=== PATIENT | female | born 1990 | race African-American/Black ===

== ENCOUNTER 2021-09-04 10:17 | Inpatient (IN) | payer MEDICAID ==
[~2021-09-04] VITALS: Ht 165.1 cm; Wt 58.5 kg
[~2021-09-04 10:17] MED LIST: METHYLERGONOVINE MALEATE 0.2 MG/ML ONE
[2021-09-04 12:56] LABS: CLARITY URINE CLEAR (CLEAR); COLOR URINE YELLOW (YELLOW); KETONES URINE 1+ (NEGATIVE); LEUKOCYTE ESTERASE URINE NEGATIVE (NEGATIVE); NITRITE URINE NEGATIVE (NEGATIVE); OCCULT BLOOD URINE NEGATIVE (NEGATIVE); PH URINE 7.5 (4.5-8.0); PROTEIN URINE NEGATIVE (NEGATIVE); SPECIFIC GRAVITY URINE 1.013 (1.005-1.030)
[2021-09-04] MEDS ORDERED: PENICILLIN G POTASSIUM 5 MMU in DEXT 5% WATER 100 ML IV NR (13:00)
[2021-09-04] MEDS ORDERED: RHO(D) IMMUNE GLOBULIN 300 MCG/SYR IM ONE ×2 (13:00)
[2021-09-04] MEDS ORDERED: DEXT 5%/LACTATED RINGERS 1,000 ML IV SCH (13:00)
[2021-09-04] MEDS ORDERED: MAGNESIUM 4 G PREMIX 100 ML IV SCH (13:40)
[2021-09-04 13:45] LABS: BASOPHILS % 0.4 % (0.0-2.0); EOSINOPHILS % 0.5 % (0.0-5.0); HEMATOCRIT. 34.9 % (36.0-48.0); HEMOGLOBIN. 12.1 g/dL (12.0-16.0); LYMPHOCYTES % 15.4 % (20.0-50.0); MEAN CORPUSCULAR HEMOGLOBIN 30.8 pg (28.0-32.0); MEAN CORPUSCULAR VOLUME 88.8 fL (81.0-99.0); MEAN PLATELET VOLUME 8.3 fl (7.4-10.4); MONOCYTES % 4.3 % (2.0-8.0); NEUTROPHILS % 79.4 % (40.0-76.0); PLATELET 206 x1000/uL (130-400); RED BLOOD CELL COUNT 3.93 mill/uL (4.2-5.4); RED CELL DISTRIBUTION WIDTH 12.3 % (11.6-14.6)
[2021-09-04] MEDS ORDERED: MAGNESIUM 20 G PREMIX (L & D) 500 ML IV SCH (13:45)
[2021-09-04] MEDS ORDERED: BETAMETHASONE ACET/BETAMET 30 MG/5 ML VIAL IM SCH (13:45)
[2021-09-04 13:53] LABS: CHLORIDE 109 mEq/L (98-107)
[2021-09-04 13:57] LABS: *AMPHETAMINES SCREEN URINE NEGATIVE (NEGATIVE); *BARBITURATES SCREEN URINE NEGATIVE (NEGATIVE); *BENZODIAZEPINES SCREEN URINE NEGATIVE (NEGATIVE); *COCAINE SCREEN URINE NEGATIVE (NEGATIVE); METHADONE URINE SCREEN NEGATIVE (NEGATIVE); OPIATES URINE SCREEN NEGATIVE (NEGATIVE)
[2021-09-04 13:57] LABS: INR 0.9; PARTIAL THROMBOPLASTIN TIME 29.2 sec (23.4-31.0); PROTHROMBIN TIME 10.2 sec (9.6-11.0)
[2021-09-04 13:58] LABS: PHENCYCLIDINE URINE SCREEN NEGATIVE (NEGATIVE)
[2021-09-04] MEDS ORDERED: LIDOCAINE HCL 1% 10 MG/ML 10ML VIAL ONE (13:58)
[2021-09-04] MEDS ORDERED: PROPOFOL 200MG/20ML VIAL IV ONE (13:58)
[2021-09-04] MEDS ORDERED: SUCCINYLCHOLINE CHLORIDE 200MG/10ML IV ONE (13:58)
[2021-09-04 14:01] LABS: CANNABINOID URINE SCREEN PRESUMTIVE POSITIVE (NEGATIVE)
[2021-09-04] MEDS ORDERED: CEFAZOLIN SODIUM 1000MG/VIAL ONE (14:01)
[2021-09-04] MEDS ORDERED: OXYTOCIN 10 UNITS/ML 1ML ONE ×2 (14:01→14:33)
[2021-09-04] MEDS ORDERED: PHENYLEPHRINE HCL 10 MG/ML 1ML (IV VIAL) IV ONE (14:04)
[2021-09-04] MEDS ORDERED: FENTANYL CITRATE/PF 50MCG/ML 2ML VIAL ONE ×2 (14:21→14:50)
[2021-09-04] MEDS ORDERED: ONDANSETRON HCL 4MG/2ML INJ ONE (14:40)
[2021-09-04] MEDS ORDERED: LANOLIN OINT 7GM TUBE TOP PRN (14:45)
[2021-09-04] MEDS ORDERED: ONDANSETRON HCL 4MG/2ML INJ IV PRN ×2 (14:45→15:15)
[2021-09-04] MEDS ORDERED: BISACODYL 10MG SUPP PR PRN (14:45)
[2021-09-04] MEDS ORDERED: RHO(D) IMMUNE GLOBULIN 300 MCG/SYR IM PRN (14:45)
[2021-09-04] MEDS ORDERED: KETOROLAC 30MG/ML VIAL IV PRN (14:45)
[2021-09-04] MEDS ORDERED: IBUPROFEN 400MG TABLET PO PRN (14:45)
[2021-09-04] MEDS ORDERED: HYDROCODONE/ACETAMINOPHEN 5/325MG TABLET PO PRN (14:45)
[2021-09-04] MEDS ORDERED: DIPHENHYDRAMINE 25MG CAPSULE PO PRN (14:45)
[2021-09-04] MEDS ORDERED: KETOROLAC 60MG/2ML VIAL IM ONE (14:47)
[2021-09-04 15:19] LABS: HEPATITIS B SURFACE ANTIGEN NEGATIVE
[2021-09-04] MEDS: HYDROMORPHONE HCL/PF 2MG/ML CPJ IV PRN ×3 (15:37→16:17)
[2021-09-04] MEDS ORDERED: PENICILLIN G POTASSIUM 2.5 MMU in DEXTROSE 5% WATER 50 ML IV SCH (16:00)
[2021-09-04 17:45] VITALS: BP 101/51
[2021-09-04] MEDS ORDERED: NALOXONE HCL 0.4MG/ML VIAL IV PRN (17:45)
[2021-09-04] MEDS: DEXT 5%/LR + PITOCIN 20UNITS/L 1,000 ML IV SCH (17:47)
[2021-09-04 20:00] VITALS: BP 98/55
[2021-09-04] MEDS: DOCUSATE SODIUM 100MG CAPSULE PO SCH (21:58)
[2021-09-04] MEDS: SIMETHICONE 80MG TABLET CHEW PO SCH (21:59)
[2021-09-05] VITALS: BP 105/53
[2021-09-05] MEDS: DEXT 5%/LR + PITOCIN 20UNITS/L 1,000 ML IV SCH (01:27)
[2021-09-05 04:00] VITALS: BP 99/54
[2021-09-05] MEDS: IBUPROFEN 800MG TABLET PO PRN ×3 (05:15→21:37)
[2021-09-05 07:15] LABS: HEMATOCRIT. 29.2 % (36.0-48.0); HEMOGLOBIN. 10.3 g/dL (12.0-16.0); MEAN CORPUSCULAR HEMOGLOBIN 31.4 pg (28.0-32.0); MEAN CORPUSCULAR VOLUME 89.2 fL (81.0-99.0); MEAN PLATELET VOLUME 8.3 fl (7.4-10.4); PLATELET 186 x1000/uL (130-400); RED BLOOD CELL COUNT 3.28 mill/uL (4.2-5.4); RED CELL DISTRIBUTION WIDTH 12.1 % (11.6-14.6)
[2021-09-05] MEDS: SIMETHICONE 80MG TABLET CHEW PO SCH ×4 (09:20→20:40)
[2021-09-05] MEDS: PRENATAL VIT/FE FUMARATE/FA TABLET PO SCH (09:21)
[2021-09-05] MEDS: FERROUS SULFATE 325MG TABLET PO SCH ×2 (09:21→18:14)
[2021-09-05 10:00] VITALS: BP 110/60
[2021-09-05 13:23] LABS: PLATELET ESTIMATE NORMAL
[2021-09-05 14:00] VITALS: BP 116/64
[2021-09-05 20:00] VITALS: BP 117/51
[2021-09-05] MEDS: DOCUSATE SODIUM 100MG CAPSULE PO SCH (20:40)
[2021-09-06] VITALS: BP 115/52
[2021-09-06 04:00] VITALS: BP 105/61
[2021-09-06 08:15] VITALS: BP 98/53
[2021-09-06] MEDS: FERROUS SULFATE 325MG TABLET PO SCH (08:40)
[2021-09-06] MEDS: SIMETHICONE 80MG TABLET CHEW PO SCH ×2 (08:40→21:13)
[2021-09-06] MEDS: PRENATAL VIT/FE FUMARATE/FA TABLET PO SCH (08:40)
[2021-09-06] MEDS: IBUPROFEN 800MG TABLET PO PRN ×2 (08:44→21:14)
[2021-09-06 16:50] VITALS: BP 110/69
[2021-09-06 20:00] VITALS: BP 98/61
[2021-09-06] MEDS: DOCUSATE SODIUM 100MG CAPSULE PO SCH (21:13)
[2021-09-07 00:17] LABS: BASOPHILS % 0.2 % (0.0-2.0); EOSINOPHILS % 0.4 % (0.0-5.0); HEMATOCRIT. 30.4 % (36.0-48.0); HEMOGLOBIN. 10.5 g/dL (12.0-16.0); LYMPHOCYTES % 19.6 % (20.0-50.0); MEAN CORPUSCULAR VOLUME 89.7 fL (81.0-99.0); MEAN PLATELET VOLUME 8.1 fl (7.4-10.4); MONOCYTES % 4.8 % (2.0-8.0); PLATELET 191 x1000/uL (130-400); RED BLOOD CELL COUNT 3.39 mill/uL (4.2-5.4); RED CELL DISTRIBUTION WIDTH 12.6 % (11.6-14.6)
[2021-09-07 04:00] VITALS: BP 108/58
[2021-09-07] MEDS ORDERED: MULT1TAB85 MT (07:49)
[2021-09-07] MEDS ORDERED: IBUP-2030 PO (07:49)
[2021-09-07] MEDS ORDERED: FERR-63 PO (07:49)
[2021-09-07] MEDS: FERROUS SULFATE 325MG TABLET PO SCH (07:58)
[2021-09-07] MEDS: SIMETHICONE 80MG TABLET CHEW PO SCH (07:58)
[2021-09-07] MEDS: PRENATAL VIT/FE FUMARATE/FA TABLET PO SCH (07:58)
[2021-09-07 09:30] VITALS: BP 102/60
[2021-09-10 13:07] LABS: CANNABINOID CONFIRMATION URINE Positive (.)
== END 2021-09-07 10:00 | disposition home or self-care (01) | DRG 540 ==
LOC: 8 EST LDRP 10:17 → OBSVTOIN 10:17 → 8EST 17:39
PROVIDERS: ADMIT Specialist; ATTEND Specialist
PROC: 10D00Z1 Extraction of Products of Conception, Low, Open Approach (ICD-10-PCS; principal; 2021-09-04)
DX: O32.8XX0 Maternal care for other malpresentation of fetus, not applicable or unspecified (principal); O60.12X0 Preterm labor second trimester with preterm delivery second trimester, not applicable or unspecified; O99.324 Drug use complicating childbirth; F12.10 Cannabis abuse, uncomplicated; Z20.822 Contact with and (suspected) exposure to COVID-19; O90.81 Anemia of the puerperium; Z3A.23 23 weeks gestation of pregnancy; Z37.0 Single live birth
CPT/HCPCS: 36415; 76805; 80053; 80305; 80349; 81003; 85025; 86592; 86644; 86703; 86762; 86850; 86900; 87340; 87426; 88307; 99281; J0330; J0690; J0702; J1170; J1885; J2210; J2370; J2405; J2540; J2590; J2704; J3010; J3475; J3490; J7060; J7121; A4315

== ENCOUNTER 2023-10-11 11:52 | Emergency (ER) | payer MEDICAID, OTHER ==
[~2023-10-11] VITALS: Ht 165.1 cm; Wt 59.0 kg
[~2023-10-11 11:52] MED LIST changes: +FERR-63 PO; +IBUP-2030 PO; -METHYLERGONOVINE MALEATE 0.2 MG/ML ONE; +MULT1TAB85 MT
[2023-10-11 11:57] VITALS: BP 157/90; PULSE 123; TEMP 98.2; O2SAT 100
[2023-10-11] MEDS: TETANUS, DIPHTHERIA, PERTUSSIS VAC/PF 0.5ML (>10YR OLD) IM ONE (13:20)
[2023-10-11] MEDS ORDERED: AMOX1TAB16 MT (13:38)
[2023-10-11 13:55] VITALS: RESP 17
== END 2023-10-11 15:38 | disposition home or self-care (01) ==
LOC: ER 11:52
DX: S62.611A Displaced fracture of proximal phalanx of left index finger, initial encounter for closed fracture (principal); S61.211A Laceration without foreign body of left index finger without damage to nail, initial encounter; Z98.890 Other specified postprocedural states; X58.XXXA Exposure to other specified factors, initial encounter; Y93.89 Activity, other specified; Y92.89 Other specified places as the place of occurrence of the external cause; Y99.9 Unspecified external cause status
CPT/HCPCS: 73140; 90715; 90471; 99283; Z7610 ×4

== ENCOUNTER 2024-05-08 18:55 | Emergency (ER) | payer SELFPAY ==
[~2024-05-08] VITALS: Ht 172.7 cm; Wt 64.0 kg
[~2024-05-08 18:55] MED LIST changes: +AMOX1TAB16 MT
[2024-05-08 18:59] VITALS: BP 131/82; TEMP 98.5; O2SAT 97
[2024-05-08 19:02] VITALS: PULSE 145; RESP 16; O2SAT 100
[2024-05-08] MEDS ORDERED: TOPUD MT (20:39)
== END 2024-05-08 20:44 | disposition home or self-care (01) ==
LOC: ER 18:55
DX: H10.219 Acute toxic conjunctivitis, unspecified eye (principal); Z79.899 Other long term (current) drug therapy; Z98.890 Other specified postprocedural states
CPT/HCPCS: 12011; 99282

== ENCOUNTER 2024-09-17 07:47 | Emergency (ER) | payer MEDICAID, OTHER ==
[~2024-09-17] VITALS: Ht 170.2 cm; Wt 68.0 kg
[~2024-09-17 07:47] MED LIST changes: +TOPUD MT
[2024-09-17 07:52] VITALS: O2SAT 98
[2024-09-17] MEDS: IBUPROFEN 600MG TABLET PO ONE (08:28)
[2024-09-17] MEDS ORDERED: METHYLPREDNISOLONE 40MG/ML INJ IV ONE (09:15)
[2024-09-17] MEDS: LIDOCAINE HCL 1% 20ML VIAL INFIL ONE (09:19)
[2024-09-17] MEDS: METHYLPREDNISOLONE SOD SUCC 125MG/2ML (ACT-O-VIAL) IV NR (09:19)
[2024-09-17] MEDS: LIDOCAINE HCL 1% 20ML VIAL INFIL NR (09:19)
[2024-09-17 12:14] LABS: BODY FLUID RBC 735000 /cu mm (0-2000); BODY FLUID WBC 4500 /cu mm (0-200)
[2024-09-17 12:18] LABS: BODY FLUID MONOCYTES 3 %
[2024-09-17 13:00] VITALS: BP 111/54; PULSE 82; RESP 12; TEMP 36.7; O2SAT 100
== END 2024-09-17 13:12 | disposition home or self-care (01) ==
LOC: ER 07:47
DX: M70.41 Prepatellar bursitis, right knee (principal)
CPT/HCPCS: 87070; 87186; 87205; 87077; 89050; 89060; 73562; 96374; 99284; J3490; J2919; Z7610 ×3

== ENCOUNTER 2025-05-09 00:39 | Emergency (ER) | payer OTHER ==
[~2025-05-09] VITALS: Ht 165.1 cm; Wt 59.0 kg
[2025-05-09 00:42] VITALS: O2SAT 99
[2025-05-09 00:46] VITALS: BP 152/66; PULSE 85; RESP 16; TEMP 36.6; O2SAT 99
[2025-05-09 01:40] LABS: CLARITY URINE CLOUDY (CLEAR); COLOR URINE YELLOW (YELLOW); GLUCOSE URINE NEGATIVE (NEGATIVE); KETONES URINE NEGATIVE (NEGATIVE); LEUKOCYTE ESTERASE URINE TRACE (NEGATIVE); NITRITE URINE NEGATIVE (NEGATIVE); OCCULT BLOOD URINE TRACE (NEGATIVE); PH URINE 8.0 (4.5-8.0); PROTEIN URINE NEGATIVE (NEGATIVE); SPECIFIC GRAVITY URINE 1.009 (1.005-1.030); UROBILINOGEN URINE 1.0 E.U./dL (0.2-1.0)
[2025-05-09 01:42] LABS: BASOPHILS % 0.5 % (0.0-2.0); EOSINOPHILS % 1.4 % (0.0-5.0); HEMATOCRIT. 44.5 % (36.0-48.0); HEMOGLOBIN. 14.8 g/dL (12.0-16.0); LYMPHOCYTES % 26.8 % (20.0-50.0); MEAN PLATELET VOLUME 8.0 fl (7.4-10.4); MONOCYTES % 7.3 % (2.0-8.0); NEUTROPHILS % 64.0 % (40.0-76.0); PLATELET 238 x1000/uL (130-400); RED BLOOD CELL COUNT 4.97 mill/uL (4.2-5.4); RED CELL DISTRIBUTION WIDTH 12.9 % (11.6-14.6)
[2025-05-09 01:53] LABS: *AMPHETAMINES SCREEN URINE NEGATIVE (NEGATIVE); *BARBITURATES SCREEN URINE NEGATIVE (NEGATIVE); *BENZODIAZEPINES SCREEN URINE NEGATIVE (NEGATIVE); *COCAINE SCREEN URINE NEGATIVE (NEGATIVE); CANNABINOID URINE SCREEN PRESUMPTIVE POSITIVE (NEGATIVE); ECSTASY MDMA SCREEN URINE NEGATIVE (NEGATIVE); METHADONE URINE SCREEN NEGATIVE (NEGATIVE); OPIATES URINE SCREEN NEGATIVE (NEGATIVE); PHENCYCLIDINE URINE SCREEN NEGATIVE (NEGATIVE)
[2025-05-09 01:55] LABS: CREATININE 0.8 mg/dL (0.6-1.0); ETHANOL BLOOD < 10 mg/dL (<10); UREA NITROGEN BLOOD 8 mg/dL (9-23)
[2025-05-09 01:59] LABS: SQUAMOUS EPITHELIAL CELL URINE RARE /lpf (RARE/1+)
[2025-05-09 02:00] LABS: BACTERIA URINE TRACE
[2025-05-09] MEDS ORDERED: NITR-87 MT (02:04)
== END 2025-05-09 02:30 | disposition home or self-care (01) ==
LOC: ER 00:39
DX: R82.71 Bacteriuria (principal); R51.9 Headache, unspecified; Z79.899 Other long term (current) drug therapy
CPT/HCPCS: 36415; 71045; 80048; 80305; 80320; 81003; 81025; 85025; 99284; G0480